=== PATIENT | male | born 1960 | race African-American/Black ===

== ENCOUNTER 2021-11-26 09:49 | Inpatient (IN) | payer OTHER ==
[~2021-11-26] VITALS: Ht 177.8 cm; Wt 126.6 kg
[2021-11-26 09:53] VITALS: BP_SYST 16
[2021-11-26 10:53] LABS: ANION GAP 5 (5-15); BASOPHILS # (AUTO) 0.1 K/uL (0.0-0.2); BASOPHILS % (AUTO) 0.7 % (0.0-2.0); CALCIUM 9.1 mg/dL (8.4-11.0); CHLORIDE 102 mmol/L (98-107); CREATININE 1.69 mg/dL (0.55-1.30); EOSINOPHILS # (AUTO) 0.1 K/uL (0.0-0.4); EOSINOPHILS % (AUTO) 1.4 % (0.0-4.0); GLUCOSE 313 mg/dL (70-99); HEMATOCRIT 35.6 % (36-54); HEMOGLOBIN 11.9 g/dL (14.0-18.0); LYMPHOCYTES # (AUTO) 1.4 K/uL (1.0-5.5); LYMPHOCYTES % (AUTO) 12.6 % (20.5-51.5); MEAN CORPUSCULAR HEMOGLOBIN 28 pg (27-31); MEAN CORPUSCULAR HGB CONC 33 % (32-36); MEAN CORPUSCULAR VOLUME 83 fL (79.0-98.0); MONOCYTES # (AUTO) 0.6 K/uL (0.0-1.0); MONOCYTES % (AUTO) 5.3 % (1.7-9.3); NEUTROPHILS # (AUTO) 8.9 K/uL (1.8-7.7); PLATELET COUNT (AUTO) 422 K/uL (130-430); POTASSIUM 3.4 mmol/L (3.5-5.1); RED CELL DISTRIBUTION WIDTH 14.4 % (9.0-15.0); SODIUM SERUM 137 mmol/L (136-145); UREA NITROGEN, BLOOD 25 mg/dL (8-21); WHITE BLOOD COUNT (AUTO) 11.1 K/uL (4.8-10.8)
[2021-11-26 10:54] LABS: GFR AFRICAN AMERICAN 53 mL/min (>90)
[2021-11-26 11:02] LABS: ALANINE AMINOTRANSFERASE 70 U/L (12-78); ALBUMIN 3.2 g/dL (3.4-4.8); ASPARTATE AMINOTRANSFERASE 35 U/L (10-37); TOTAL BILIRUBIN 0.3 mg/dL (0.0-1.0)
[2021-11-26] MEDS ORDERED: NITROGLYCERIN 1 INCH (GM) OINT. TP ONE (11:45)
[2021-11-26] MEDS ORDERED: cefTRIAXone 1 GM IVPB PREMIX 50 ML IV ONE (11:45)
[2021-11-26] MEDS ORDERED: ASPIRIN 81 MG TAB.CHEW PO ONE (11:45)
[2021-11-26] MEDS ORDERED: AMLO5TAB92 PO (12:33)
[2021-11-26] MEDS ORDERED: LIP40 PO (12:33)
[2021-11-26] MEDS ORDERED: PRO40 PO (12:33)
[2021-11-26] MEDS ORDERED: LOSA1TAB40 PO (12:33)
[2021-11-26] MEDS ORDERED: HYDR200T80 PO (12:33)
[2021-11-26] MEDS ORDERED: CLOP75TA32 PO (12:33)
[2021-11-26] MEDS ORDERED: HYDROcodone/ACETAMIN 10-325 MG TAB PO PRN (13:15)
[2021-11-26] MEDS ORDERED: LORazepam 2 MG/ML VIAL IVP PRN (13:15)
[2021-11-26] MEDS ORDERED: HYDROcodone/ACETAMIN 5-325 MG TAB (NORCO/ VICODIN) PO PRN (13:15)
[2021-11-26] MEDS ORDERED: NALOXONE HCL 0.4 MG/ML AMP (NARCAN) IVP PRN ×2 (13:15)
[2021-11-26] MEDS ORDERED: ONDANSETRON HCL 4 MG/2 ML VIAL IVP PRN (13:15)
[2021-11-26] MEDS ORDERED: ACETAMINOPHEN 325 MG TABLET PO PRN (13:15)
[2021-11-26] MEDS: NORMAL SALINE 5 ML DISP.SYRIN IVF SCH ×2 (14:00→22:06)
[2021-11-26] MEDS ORDERED: NORMAL SALINE 5 ML DISP.SYRIN IVF SCH (14:00)
[2021-11-26] MEDS: cefTRIAXone 1 GM IVPB PREMIX 50 ML IV SCH (14:03)
[2021-11-26 16:00] VITALS: BP_SYST 151
[2021-11-26 20:00] VITALS: BP_SYST 150
[2021-11-26] MEDS: amLODIPine BESYLATE 5 MG TABLET PO SCH (21:56)
[2021-11-26] MEDS: HYDROXYCHLOROQUINE SULFATE 200 MG TABLET PO SCH (21:57)
[2021-11-26] MEDS: INSULIN REGULAR, HUMAN 100 UNITS/ML, 10 ML VIAL (humuLIN R) SUBCUT PRN (22:00)
[2021-11-27] VITALS: BP_SYST 134
[2021-11-27] MEDS: NORMAL SALINE 5 ML DISP.SYRIN IVF SCH ×3 (06:07→20:39)
[2021-11-27] MEDS: INSULIN REGULAR, HUMAN 100 UNITS/ML, 10 ML VIAL (humuLIN R) SUBCUT PRN ×4 (06:13→21:13)
[2021-11-27 06:56] LABS: BASOPHILS # (AUTO) 0.1 K/uL (0.0-0.2); BASOPHILS % (AUTO) 0.6 % (0.0-2.0); EOSINOPHILS # (AUTO) 0.2 K/uL (0.0-0.4); HEMATOCRIT 34.1 % (36-54); HEMOGLOBIN 11.3 g/dL (14.0-18.0); LYMPHOCYTES # (AUTO) 1.4 K/uL (1.0-5.5); LYMPHOCYTES % (AUTO) 14.4 % (20.5-51.5); MEAN CORPUSCULAR HEMOGLOBIN 28 pg (27-31); MEAN CORPUSCULAR HGB CONC 33 % (32-36); MEAN CORPUSCULAR VOLUME 83 fL (79.0-98.0); MONOCYTES # (AUTO) 0.7 K/uL (0.0-1.0); MONOCYTES % (AUTO) 6.9 % (1.7-9.3); NEUTROPHILS # (AUTO) 7.6 K/uL (1.8-7.7); NEUTROPHILS % (AUTO) 76.1 % (40.0-70.0); PLATELET COUNT (AUTO) 389 K/uL (130-430); RED CELL DISTRIBUTION WIDTH 14.7 % (9.0-15.0); WHITE BLOOD COUNT (AUTO) 9.9 K/uL (4.8-10.8)
[2021-11-27 07:37] LABS: PHOSPHORUS 3.7 mg/dL (2.7-4.5); POTASSIUM 3.5 mmol/L (3.5-5.1)
[2021-11-27 08:00] VITALS: BP_SYST 143
[2021-11-27 08:09] LABS: CALCIUM 8.2 mg/dL (8.4-11.0); CREATININE 1.29 mg/dL (0.55-1.30)
[2021-11-27 08:38] LABS: THYROID STIMULATING HORMONE 1.38 uIu/mL (0.36-3.74)
[2021-11-27] MEDS ORDERED: amLODIPine BESYLATE 5 MG TABLET PO SCH (09:00)
[2021-11-27] MEDS ORDERED: PANTOPRAZOLE SODIUM 40 MG TAB PO SCH (09:00)
[2021-11-27] MEDS ORDERED: LOSARTAN POTASSIUM 50 MG TABLET (COZAAR) PO SCH (09:00)
[2021-11-27] MEDS: HYDROXYCHLOROQUINE SULFATE 200 MG TABLET PO SCH ×2 (09:00→20:38)
[2021-11-27] MEDS ORDERED: HYDROCHLOROTHIAZIDE 25 MG TABLET (HCTZ) PO SCH (09:00)
[2021-11-27] MEDS ORDERED: NON-FORMULARY MEDICATION (Losartan/Hctz* (Losartan-Hctz 100-25 Mg Tab*) 1 EACH) PO SCH (09:00)
[2021-11-27] MEDS: ATORVASTATIN 20 MG TABLET PO SCH (09:05)
[2021-11-27] MEDS: amLODIPine BESYLATE 5 MG TABLET PO SCH ×2 (09:06→20:38)
[2021-11-27] MEDS: CLOPIDOGREL BISULFATE 75 MG TABLET PO SCH (09:13)
[2021-11-27 12:24] VITALS: BP_SYST 154
[2021-11-27] MEDS: cefTRIAXone 1 GM IVPB PREMIX 50 ML IV SCH (13:13)
[2021-11-27] MEDS ORDERED: AZITHROMYCIN 500 MG in NS 250 ML IV ONE (14:00)
[2021-11-27] MEDS ORDERED: FUROSEMIDE 20 MG/2 ML VIAL IVP ONE (16:15)
[2021-11-27 16:45] VITALS: BP_SYST 136
[2021-11-27 20:00] VITALS: BP_SYST 138
[2021-11-27] MEDS ORDERED: INSULIN GLARGINE 100 UNITS/ML 10 ML VIAL SUBCUT SCH (21:00)
[2021-11-28 01:38] VITALS: BP_SYST 144
[2021-11-28] MEDS: INSULIN REGULAR, HUMAN 100 UNITS/ML, 10 ML VIAL (humuLIN R) SUBCUT PRN (06:28)
[2021-11-28] MEDS: NORMAL SALINE 5 ML DISP.SYRIN IVF SCH ×3 (06:30→20:56)
[2021-11-28 06:55] LABS: BASOPHILS # (AUTO) 0.1 K/uL (0.0-0.2); BASOPHILS % (AUTO) 0.5 % (0.0-2.0); EOSINOPHILS # (AUTO) 0.2 K/uL (0.0-0.4); EOSINOPHILS % (AUTO) 1.7 % (0.0-4.0); HEMOGLOBIN 11.6 g/dL (14.0-18.0); LYMPHOCYTES # (AUTO) 1.6 K/uL (1.0-5.5); LYMPHOCYTES % (AUTO) 14.7 % (20.5-51.5); MEAN CORPUSCULAR HEMOGLOBIN 28 pg (27-31); MEAN CORPUSCULAR HGB CONC 33 % (32-36); MEAN CORPUSCULAR VOLUME 83 fL (79.0-98.0); MONOCYTES # (AUTO) 0.7 K/uL (0.0-1.0); MONOCYTES % (AUTO) 6.8 % (1.7-9.3); NEUTROPHILS # (AUTO) 8.3 K/uL (1.8-7.7); NEUTROPHILS % (AUTO) 76.3 % (40.0-70.0); PLATELET COUNT (AUTO) 423 K/uL (130-430); RED BLOOD CELL COUNT(AUTO) 4.22 MIL/uL (4.2-6.2); RED CELL DISTRIBUTION WIDTH 14.5 % (9.0-15.0); WHITE BLOOD COUNT (AUTO) 10.9 K/uL (4.8-10.8)
[2021-11-28 08:00] VITALS: BP_SYST 153
[2021-11-28 08:35] LABS: ERYTHROCYTE SEDIMENTATION RATE 53 MM/HR (0-15)
[2021-11-28 08:47] LABS: ALBUMIN 3.1 g/dL (3.4-4.8); CALCIUM 9.2 mg/dL (8.4-11.0); CREATININE 1.44 mg/dL (0.55-1.30); PHOSPHORUS 4.3 mg/dL (2.7-4.5); POTASSIUM 3.7 mmol/L (3.5-5.1); TOTAL BILIRUBIN 0.2 mg/dL (0.0-1.0)
[2021-11-28] MEDS: FUROSEMIDE 20 MG/2 ML VIAL IVP SCH (09:35)
[2021-11-28] MEDS: ATORVASTATIN 20 MG TABLET PO SCH (09:36)
[2021-11-28] MEDS: CLOPIDOGREL BISULFATE 75 MG TABLET PO SCH (09:36)
[2021-11-28] MEDS: PANTOPRAZOLE SODIUM 40 MG TAB PO SCH (09:36)
[2021-11-28] MEDS: amLODIPine BESYLATE 5 MG TABLET PO SCH ×2 (09:37→20:45)
[2021-11-28 10:13] LABS: C-REACTIVE PROTEIN QUANT 3.3 mg/dL (0-0.5)
[2021-11-28 12:23] VITALS: BP_SYST 142
[2021-11-28] MEDS: HYDROXYCHLOROQUINE SULFATE 200 MG TABLET PO SCH ×2 (12:31→20:45)
[2021-11-28] MEDS: cefTRIAXone 1 GM IVPB PREMIX 50 ML IV SCH (12:50)
[2021-11-28] MEDS ORDERED: INSULIN REGULAR, HUMAN 100 UNITS/ML, 10 ML VIAL SUBCUT ONE (13:15)
[2021-11-28] MEDS ORDERED: INSULIN NPH 100 UNITS/ML 10 ML VIAL SUBCUT ONE (13:15)
[2021-11-28] MEDS: AZITHROMYCIN 500 MG in NS 250 ML IV SCH (13:15)
[2021-11-28] MEDS: INSULIN LISPRO SLIDING SCALE 100 UNITS/ML VIAL (humaLOG) SUBCUT PRN ×3 (14:27→21:00)
[2021-11-28 16:00] VITALS: BP_SYST 145
[2021-11-28] MEDS ORDERED: INSULIN NPH 100 UNITS/ML 10 ML VIAL SUBCUT SCH ×2 (17:00)
[2021-11-28] MEDS ORDERED: FUROSEMIDE 20 MG/2 ML VIAL IVP ONE (17:00)
[2021-11-28 20:00] VITALS: BP_SYST 127
[2021-11-28 20:44] LABS: BILIRUBIN,URINE NEGATIVE (NEGATIVE); BLOOD, URINE NEGATIVE (NEGATIVE); CLARITY/URINE CLEAR (CLEAR); COLOR,URINE YELLOW (YELLOW); GLUCOSE,URINE TRACE (NEGATIVE); KETONES,URINE NEGATIVE (NEGATIVE); LEUKOCYTE ESTERASE ,URINE NEGATIVE (NEGATIVE); NITRITE, URINE NEGATIVE (NEGATIVE); PROTEIN URINE NEGATIVE (NEGATIVE); UROBILINOGEN,URINE 0.2 (0.2-1.0)
[2021-11-28] MEDS: INSULIN REGULAR, HUMAN 100 UNITS/ML, 10 ML VIAL SUBCUT SCH (20:52)
[2021-11-28] MEDS: INSULIN NPH 100 UNITS/ML 10 ML VIAL SUBCUT SCH (20:52)
[2021-11-28 21:02] LABS: BACTERIA,URINE None Seen /HPF (None Seen); MUCUS,URINE 1+ /LPF (None Seen); RBC,URINE 0-3 /HPF (0-3); WBC,URINE 0-3 /HPF (0-3)
[2021-11-29 00:38] VITALS: BP_SYST 138
[2021-11-29] MEDS: NORMAL SALINE 5 ML DISP.SYRIN IVF SCH ×3 (06:41→21:54)
[2021-11-29] MEDS: INSULIN LISPRO SLIDING SCALE 100 UNITS/ML VIAL (humaLOG) SUBCUT PRN ×3 (06:45→16:53)
[2021-11-29 07:34] LABS: BASOPHILS # (AUTO) 0.1 K/uL (0.0-0.2); BASOPHILS % (AUTO) 0.5 % (0.0-2.0); EOSINOPHILS # (AUTO) 0.2 K/uL (0.0-0.4); EOSINOPHILS % (AUTO) 1.8 % (0.0-4.0); HEMATOCRIT 36.7 % (36-54); HEMOGLOBIN 11.9 g/dL (14.0-18.0); LYMPHOCYTES # (AUTO) 1.8 K/uL (1.0-5.5); MEAN CORPUSCULAR HEMOGLOBIN 27 pg (27-31); MEAN CORPUSCULAR HGB CONC 33 % (32-36); MEAN CORPUSCULAR VOLUME 83 fL (79.0-98.0); MONOCYTES # (AUTO) 0.7 K/uL (0.0-1.0); MONOCYTES % (AUTO) 6.1 % (1.7-9.3); NEUTROPHILS # (AUTO) 9.2 K/uL (1.8-7.7); NEUTROPHILS % (AUTO) 76.6 % (40.0-70.0); PLATELET COUNT (AUTO) 441 K/uL (130-430); RED BLOOD CELL COUNT(AUTO) 4.44 MIL/uL (4.2-6.2); RED CELL DISTRIBUTION WIDTH 14.5 % (9.0-15.0)
[2021-11-29 08:00] VITALS: BP_SYST 149
[2021-11-29 09:03] LABS: CALCIUM 8.3 mg/dL (8.4-11.0); CREATININE 1.51 mg/dL (0.55-1.30); PHOSPHORUS 4.5 mg/dL (2.7-4.5); POTASSIUM 3.7 mmol/L (3.5-5.1)
[2021-11-29] MEDS: ATORVASTATIN 20 MG TABLET PO SCH (09:24)
[2021-11-29] MEDS: amLODIPine BESYLATE 5 MG TABLET PO SCH ×2 (09:25→21:38)
[2021-11-29] MEDS: PANTOPRAZOLE SODIUM 40 MG TAB PO SCH (09:25)
[2021-11-29] MEDS: CLOPIDOGREL BISULFATE 75 MG TABLET PO SCH (09:26)
[2021-11-29] MEDS: INSULIN NPH 100 UNITS/ML 10 ML VIAL SUBCUT SCH ×2 (09:34→21:51)
[2021-11-29] MEDS: INSULIN REGULAR, HUMAN 100 UNITS/ML, 10 ML VIAL SUBCUT SCH ×2 (09:35→21:53)
[2021-11-29] MEDS: FUROSEMIDE 20 MG/2 ML VIAL IVP SCH (09:38)
[2021-11-29 10:14] LABS: C-REACTIVE PROTEIN QUANT 2.7 mg/dL (0-0.5)
[2021-11-29] MEDS: HYDROXYCHLOROQUINE SULFATE 200 MG TABLET PO SCH ×2 (10:43→21:38)
[2021-11-29 12:00] VITALS: BP_SYST 142
[2021-11-29 13:31] LABS: ERYTHROCYTE SEDIMENTATION RATE 53 MM/HR (0-15)
[2021-11-29] MEDS: cefTRIAXone 1 GM IVPB PREMIX 50 ML IV SCH (13:41)
[2021-11-29] MEDS: AZITHROMYCIN 500 MG in NS 250 ML IV SCH (13:42)
[2021-11-29 17:22] VITALS: BP_SYST 142
[2021-11-29 20:07] LABS: MYCOPLASMA PNEUMONIAE IgM <770 U/mL (0-769)
[2021-11-29 20:30] VITALS: BP_SYST 147
[2021-11-30 00:30] VITALS: BP_SYST 141
[2021-11-30 05:57] LABS: BASOPHILS # (AUTO) 0.1 K/uL (0.0-0.2); BASOPHILS % (AUTO) 0.6 % (0.0-2.0); EOSINOPHILS # (AUTO) 0.2 K/uL (0.0-0.4); EOSINOPHILS % (AUTO) 1.9 % (0.0-4.0); HEMATOCRIT 36.2 % (36-54); HEMOGLOBIN 11.9 g/dL (14.0-18.0); LYMPHOCYTES # (AUTO) 1.6 K/uL (1.0-5.5); MEAN CORPUSCULAR HEMOGLOBIN 27 pg (27-31); MEAN CORPUSCULAR HGB CONC 33 % (32-36); MEAN CORPUSCULAR VOLUME 83 fL (79.0-98.0); MONOCYTES # (AUTO) 0.7 K/uL (0.0-1.0); MONOCYTES % (AUTO) 6.4 % (1.7-9.3); NEUTROPHILS # (AUTO) 7.7 K/uL (1.8-7.7); NEUTROPHILS % (AUTO) 75.1 % (40.0-70.0); PLATELET COUNT (AUTO) 417 K/uL (130-430); RED BLOOD CELL COUNT(AUTO) 4.36 MIL/uL (4.2-6.2); RED CELL DISTRIBUTION WIDTH 14.7 % (9.0-15.0); WHITE BLOOD COUNT (AUTO) 10.2 K/uL (4.8-10.8)
[2021-11-30] MEDS: NORMAL SALINE 5 ML DISP.SYRIN IVF SCH (06:57)
[2021-11-30] MEDS: INSULIN LISPRO SLIDING SCALE 100 UNITS/ML VIAL (humaLOG) SUBCUT PRN (06:58)
[2021-11-30 07:31] LABS: CALCIUM 8.3 mg/dL (8.4-11.0); CREATININE 1.46 mg/dL (0.55-1.30); POTASSIUM 3.9 mmol/L (3.5-5.1); TOTAL BILIRUBIN 0.3 mg/dL (0.0-1.0)
[2021-11-30 08:00] VITALS: BP_SYST 129
[2021-11-30] MEDS: CLOPIDOGREL BISULFATE 75 MG TABLET PO SCH (09:40)
[2021-11-30] MEDS: FUROSEMIDE 20 MG/2 ML VIAL IVP SCH (09:40)
[2021-11-30] MEDS: PANTOPRAZOLE SODIUM 40 MG TAB PO SCH (09:41)
[2021-11-30] MEDS: amLODIPine BESYLATE 5 MG TABLET PO SCH (09:41)
[2021-11-30] MEDS: HYDROXYCHLOROQUINE SULFATE 200 MG TABLET PO SCH (09:42)
[2021-11-30] MEDS: ATORVASTATIN 20 MG TABLET PO SCH (09:49)
[2021-11-30] MEDS: INSULIN NPH 100 UNITS/ML 10 ML VIAL SUBCUT SCH (09:52)
[2021-11-30] MEDS: INSULIN REGULAR, HUMAN 100 UNITS/ML, 10 ML VIAL SUBCUT SCH (09:53)
[2021-11-30 09:56] LABS: ERYTHROCYTE SEDIMENTATION RATE 45 MM/HR (0-15)
[2021-11-30 10:17] LABS: PHOSPHORUS 4.1 mg/dL (2.7-4.5)
[2021-11-30] MEDS ORDERED: ALBMDI INH (11:13)
[2021-11-30] MEDS ORDERED: DOXY100T2 PO (11:13)
[2021-11-30 13:45] VITALS: BP_SYST 133
[2021-11-30 13:51] VITALS: BP_SYST 133
[2021-12-01 08:06] LABS: HEPATITIS B CORE AB, IgM Negative (Negative); HEPATITIS B SURFACE AG Negative (Negative)
== END 2021-11-30 14:30 | disposition home health service (06) | DRG 698 ==
LOC: SED 09:49 → STU 12:14
PROVIDERS: ADMIT Preventive Medicine Preventive Medicine/Occupational Environmental Medicine; ATTEND Internal Medicine Hospice and Palliative Medicine
DX: E11.21 Type 2 diabetes mellitus with diabetic nephropathy (principal); A41.9 Sepsis, unspecified organism; J18.9 Pneumonia, unspecified organism; Z68.41 Body mass index [BMI] 40.0-44.9, adult; Z20.822 Contact with and (suspected) exposure to COVID-19; N17.9 Acute kidney failure, unspecified; E83.52 Hypercalcemia; E11.65 Type 2 diabetes mellitus with hyperglycemia; E78.5 Hyperlipidemia, unspecified; E88.09 Other disorders of plasma-protein metabolism, not elsewhere classified; R79.89 Other specified abnormal findings of blood chemistry; M06.4 Inflammatory polyarthropathy; E66.01 Morbid (severe) obesity due to excess calories; N18.9 Chronic kidney disease, unspecified; E11.22 Type 2 diabetes mellitus with diabetic chronic kidney disease; D75.839 Thrombocytosis, unspecified; D64.9 Anemia, unspecified
CPT/HCPCS: 36415; 71045; 71250-TC; 76376; 76770; 80048; 80053; 80061; 81000; 82962; 83605; 83735; 83880; 84100; 84443; 84484; 85025; 85379; 85651-TC; 86140; 86480; 86635; 86705; 86709; 86738; 87040; 87340; 93005; 93306; 96365; 99291; G0378; J0456; J0696; J1815; J1940; J2060; J7050